=== PATIENT | male | born 1985 | race Caucasian/White ===

== ENCOUNTER 2017-03-22 12:30 | Emergency (ER) | payer MEDICAID ==
[~2017-03-22] VITALS: Ht 180.3 cm; Wt 75.1 kg
[~2017-03-22 12:30] MED LIST: ONDA4TAB12 PO; OXYC-145 PO; TAMS0.4C32 PO
[2017-03-22 13:03] VITALS: BP 132/92
[2017-03-22] MEDS ORDERED: HYDROcodone/acetaminophen 5mg/325mg tablet PO ONE (13:25)
[2017-03-22] MEDS ORDERED: OFLO5DRO3 EACH EAR (13:32)
[2017-03-22] MEDS ORDERED: HYDR-3965 PO (13:32)
[2017-03-22] MEDS ORDERED: AMOX-580 PO (13:36)
== END 2017-03-22 13:41 | disposition home or self-care (01) ==
LOC: ER 12:31
DX: H72.91 Unspecified perforation of tympanic membrane, right ear (principal); Z79.899 Other long term (current) drug therapy
CPT/HCPCS: 99283